=== PATIENT | female | born 1960 | race Caucasian/White ===

== ENCOUNTER 2024-09-02 07:15 | Day surgery (SDC) | payer OTHER ==
[~2024-09-02 07:15] MED LIST: Sodium Chloride 0.9% 10 ML Syringe FLUSH PRN; Sodium Chloride 0.9% 10 ML Syringe FLUSH SCH
[2024-09-02] MEDS ORDERED: Propofol 200 MG/20 ML SDV ONE ×2 (07:23→07:35)
[2024-09-02] MEDS: Lactated Ringers 1,000 ML IV SCH (07:30)
[2024-09-02] MEDS ORDERED: fentaNYL 100 MCG/2 ML SDV ONE (08:02)
[2024-09-02] MEDS: Bupivacaine 0.25% 10 ML SDV ONE ×2 (08:38→08:42)
[2024-09-02] MEDS: Lidocaine 1% 10 ML MDV ONE (08:38)
[2024-09-02] MEDS: Triamcinolone Acetonide 40 MG/ML 1 ML SDV ONE (08:42)
== END 2024-09-02 09:32 | disposition home or self-care (01) ==
LOC: JD.SDS 07:15
PROVIDERS: ATTEND Orthopaedic Surgery
DX: G56.13 Other lesions of median nerve, bilateral upper limbs (principal); G56.03 Carpal tunnel syndrome, bilateral upper limbs
CPT/HCPCS: 20526; 64721; J0665; J2003; J2704; J3010; J3301; J7120; 01810

== ENCOUNTER 2024-12-04 06:00 | Day surgery (SDC) | payer OTHER ==
[2024-12-04] MEDS ORDERED: fentaNYL 100 MCG/2 ML SDV ONE (06:04)
[2024-12-04] MEDS ORDERED: Midazolam 1 MG/ML 2 ML SDV ONE (06:04)
[2024-12-04] MEDS ORDERED: Ropivacaine 0.5% 5 MG/ML 30 ML SDV ONE (06:04)
[2024-12-04] MEDS: Lactated Ringers 1,000 ML IV SCH (06:05)
[2024-12-04] MEDS ORDERED: Bupivacaine 0.25% 10 ML SDV ONE (06:37)
[2024-12-04] MEDS ORDERED: Lidocaine 1% 10 ML MDV ONE (06:38)
[2024-12-04] MEDS ORDERED: Ondansetron 4 MG/2 ML SDV IVPUSH PRN (06:45)
[2024-12-04] MEDS ORDERED: fentaNYL 100 MCG/2 ML SDV IVPUSH PRN (06:45)
[2024-12-04] MEDS ORDERED: HYDROmorphone 0.5 MG/0.5 ML Syringe IVPUSH PRN (06:45)
[2024-12-04] MEDS ORDERED: Propofol 200 MG/20 ML SDV ONE (06:50)
== END 2024-12-04 08:28 | disposition home or self-care (01) ==
LOC: JD.SDS 06:00
PROVIDERS: ATTEND Orthopaedic Surgery
DX: G56.01 Carpal tunnel syndrome, right upper limb (principal)
CPT/HCPCS: 64721; J0665; J2003; J2250; J2704; J2795; J3010; J7120; 01810; 64450